=== PATIENT | female | born 1975 | race Caucasian/White ===

== ENCOUNTER 2019-08-02 18:29 | Emergency (ER) | payer MEDICAID ==
[~2019-08-02] VITALS: Ht 175.3 cm; Wt 82.0 kg
[2019-08-02 19:06] VITALS: BP 97/72
[2019-08-02] MEDS ORDERED: HYDROCODONE/ACETAMINOPHEN 5/325MG TABLET PO ONE (20:00)
[2019-08-02] MEDS ORDERED: ONDANSETRON HCL 4MG/2ML INJ IV ONE (20:00)
[2019-08-02] MEDS ORDERED: SODIUM CHLORIDE 0.9% 1,000 ML IV ONE (20:00)
== END 2019-08-02 23:15 | disposition home or self-care (01) ==
LOC: ER 18:29
DX: R10.31 Right lower quadrant pain (principal)
CPT/HCPCS: 96374; 99283; J2405; J7030; Z7610